=== PATIENT | female | born 1965 | race Caucasian/White ===

== ENCOUNTER 2022-03-10 15:39 | Emergency (ER) | payer OTHER ==
[2022-03-10] MEDS ORDERED: HYDROmorphone 1 MG/ML Syringe IM ONE (19:21)
== END 2022-03-10 20:05 | disposition home or self-care (01) ==
LOC: JD.ED 15:39
DX: S22.43XA Multiple fractures of ribs, bilateral, initial encounter for closed fracture (principal); Z72.0 Tobacco use; Z88.0 Allergy status to penicillin; Y04.0XXA Assault by unarmed brawl or fight, initial encounter
CPT/HCPCS: 71250; 96372; 99283; J1170